=== PATIENT | female | born 1955 | race Caucasian/White ===

== ENCOUNTER 2017-12-10 14:15 | Outpatient (CLI) | payer BC | END 2017-12-10 14:16 | disposition home or self-care (01) | LOC: BICMAMMO 14:15 | PROVIDERS: ATTEND Family Medicine | DX: Z12.31 Encounter for screening mammogram for malignant neoplasm of breast (principal); Z85.89 Personal history of malignant neoplasm of other organs and systems | CPT/HCPCS: 77063; 77067 ==

== ENCOUNTER 2018-09-03 13:16 | Outpatient (CLI) | payer BC ==
--- NOTE | 2018-09-03 15:14 | ULT ---
THYROID ULTRASOUND: 09/03/2018 HISTORY: Re-evaluate thyroid nodules. COMPARISON: 11/07/2016 TECHNIQUE: Multiplanar bojorquez-scale sonographic imaging of the thyroid gland obtained. FINDINGS: The thyroid isthmus measures 2 mm in AP dimension. The right lobe measures 3.7 x 1.2 x 1.3 cm. Ther e is no nodule seen in the right lobe or in the thyroid isthmus. The left lobe measures 4.0 x 1.1 x 1.2 cm. Within the mid portion of the left lobe of the thyroid gl and, there is a solid, slightly hyperechoic nodule, measuring 8 x 5 x 5 mm, not significantly changed when compared to the 11/07/2016 exam. Just inferior to this is a second smaller, solid, isoechoic n odule, measuring 4 x 4 x 4 mm, unchanged as well. IMPRESSION: Stable subcentimeter thyroid nodules on the left, of doubtful clinical significance. No significant interval change. POS: SERGEY
== END 2018-09-03 13:17 | disposition home or self-care (01) ==
LOC: BICULT 13:16
PROVIDERS: ATTEND Otolaryngology Plastic Surgery within the Head & Neck
DX: E04.2 Nontoxic multinodular goiter (principal)
CPT/HCPCS: 76536

== ENCOUNTER 2018-12-14 18:29 | Observation (INO) | payer BC ==
[2018-12-14 19:35] LABS: #Basophils 0.1 thou/uL (0.0-0.2); #Lymphocytes 0.8 thou/uL (1.20-3.40); #Monocytes 0.7 thou/uL (0.11-0.59); #Neutrophils 16.2 thou/uL (1.40-6.50); %Basophils 0.8 % (0.0-1.0); %Eosinophils 0.1 % (0.0-10.0); %Lymphocytes 4.6 % (21.0-51.0); %Monocytes 3.8 % (0.0-10.0); %Neutrophils 90.8 % (42.0-75.0); Mean Corpuscular Hemoglobin 27.9 pg (27.0-31.0); Mean Corpuscular Volume 84.5 fL (78.0-98.0); Mean Platelet Volume 11.3 fL (7.4-10.4); Platelet Count 152 thou/uL (130-400); RBC Distribution Width 12.1 % (11.5-14.5); White Blood Cell (WBC) Count 17.9 thou/uL (4.8-10.8)
[2018-12-14 19:51] LABS: ALT (SGPT) 21 U/L (8-55); AST (SGOT) 22 U/L (5-34); Albumin 4.4 g/dL (3.4-4.8); Alkaline Phosphatase 74 U/L (40-150); Anion Gap 13 mmol/L (10-20); BUN (Urea Nitrogen) 21 mg/dL (9.8-20.1); Bilirubin, Total 0.6 mg/dL (0.2-1.2); Calc. Creatinine Clearance 0 mL/min (70-130); Calcium 9.7 mg/dL (7.8-10.44); Carbon Dioxide 25 mmol/L (23-31); Chloride 104 mmol/L (98-107); Estimated GFR-MDRD 73; Globulin 2.7 g/dL (2.4-3.5); Glucose 139 mg/dL (80-115); Lipase 23 U/L (8-78); Potassium 4.1 mmol/L (3.5-5.1); Protein, Total 7.1 g/dL (6.0-8.3); Sodium 138 mmol/L (136-145)
--- NOTE | 2018-12-14 20:10 | CT ---
CT Abdomen Pelvis W Con: 12/14/2018 7:08 PM CLINICAL INFORMATION: Abdominal cramping and bloody diarrhea COMPARISON: None. TECHNIQUE: Multiple contiguous axial images were obtained and a CT of the abdomen and pelvis with IV contrast. C oronal reformats were performed. FINDINGS: Lower Chest: within normal limits. Abdomen: Liver: within normal limits. Bile Ducts: Normal caliber. Gallbladder: Surgically absent Pancreas: within normal limits. Spleen: within normal limits. Adrenals: within normal limits. Kidneys: Subcentimeter hypodensities in the right kidney are too small to definitely characterize but likely represent cysts. Pelvis: Reproductive Organs: No pelvic masses. Ureters: within normal limits. Bladder: within normal limits. Peritoneum: No ascites or free air, no fluid collection. Bowel: Normal caliber. Mesentery and Retroperitoneum: No enlarged mesenteric or retroperitoneal lymph nodes. Vessels: Atherosclerotic calcifications. Abdominal Wall: within normal limits. Bones: Within normal limits IMPRESSION: 1. No evidence of acute intraabdominal\pelvic abnormality. 2. Right renal cysts
[2018-12-14] MEDS ORDERED: Ondansetron PF 4 MG/2 ML Vial ONE (21:31)
[2018-12-14] MEDS ORDERED: Acetaminophen 325 MG TAB PO PRN (22:01)
[2018-12-14] MEDS ORDERED: Ondansetron PF 4 MG/2 ML Vial IVP PRN (22:01)
[2018-12-14] MEDS ORDERED: Ondansetron ODT 4 MG TAB SL PRN (22:01)
[2018-12-14 22:17] VITALS: BMI 23.7
[2018-12-14] MEDS: Sodium Chloride 0.9% 1,000 ML IV SCH (23:38)
[2018-12-15] MEDS ORDERED: PROVENTIL INHALER 6.7 G (200 INHALATIONS) INH PRN (01:29)
[2018-12-15] MEDS: Sodium Chloride 0.9% 1,000 ML IV SCH (02:14)
[2018-12-15] MEDS: Ondansetron PF 4 MG/2 ML Vial IVP PRN ×3 (04:16→19:57)
[2018-12-15 05:18] LABS: #Lymphocytes 1.2 thou/uL (1.20-3.40); #Monocytes 1.3 thou/uL (0.11-0.59); #Neutrophils 15.6 thou/uL (1.40-6.50); %Eosinophils 0.1 % (0.0-10.0); %Lymphocytes 6.8 % (21.0-51.0); %Neutrophils 86.1 % (42.0-75.0); Hemoglobin 13.5 g/dL (12.0-16.0); Mean Corpuscular HGB CONC 32.8 g/dL (32.0-36.0); Mean Corpuscular Hemoglobin 28.5 pg (27.0-31.0); Platelet Count 139 thou/uL (130-400); RBC Distribution Width 11.7 % (11.5-14.5); Red Blood Cell (RBC) Count 4.71 mill/uL (4.20-5.40); White Blood Cell (WBC) Count 18.1 thou/uL (4.8-10.8)
[2018-12-15] MEDS: Levothyroxine Sodium 25 MCG TAB PO SCH (05:18)
[2018-12-15 05:41] LABS: Anion Gap 12 mmol/L (10-20); BUN (Urea Nitrogen) 12 mg/dL (9.8-20.1); Calc. Creatinine Clearance 82 mL/min (70-130); Carbon Dioxide 22 mmol/L (23-31); Chloride 107 mmol/L (98-107); Estimated GFR-MDRD 86; Glucose 114 mg/dL (80-115); Potassium 3.8 mmol/L (3.5-5.1); Sodium 137 mmol/L (136-145)
--- NOTE | 2018-12-15 05:43 | HP ---
CHIEF COMPLAINT: Bloody diarrhea. HISTORY OF PRESENT ILLNESS: The patient is a 63-year-old female who states that she was in her usual state of good health, went outside, worked in her yard during the morning and she felt like she was getting a bit overheated and got suddenly fairly tired and a bit lightheaded and dizzy, so she went inside, took a nap, but was awakened by some abdominal cramps and profuse diaphoresis followed by diarrhea. She subsequently had several bouts of diarrhea and then noted some blood in her stool. She could not be certain that it had been present on the previous episodes and she just did not notice it. It was red in color and she noted some blood with wiping. She subsequently presented to the emergency department and when she arrived here, she had an episode of a significant amount of bright red blood with some congealed and clotted blood. Since that time, she has continued to have some minor cramping, but the bowel movements have decreased and the volume has dropped off substantially and there is only very small amounts of blood and clot that she is passing now. She also had some nausea and vomiting that started on her arrival to the emergency department, vomited 2 to 3 times. No blood. She denies any fever, but has had some chills. Also of note, the patient reports [place] "all sorts of things" including the seafood. She also says that on the morning of admission, drank coffee that had been sitting out for several days. She mistook it for the coffee she had started that morning. She reports it did have creamer in it. REVIEW OF SYSTEMS: As noted, the patient denied any fevers or chills. She denies any other abdominal pain other than the cramping pain. All other systems reviewed. All pertinent positives and negatives are noted in the history of present illness. PAST MEDICAL HISTORY: Notable for prior upper and lower endoscopies, only revealing some stomach polyp. She was told it was likely due to her utilization of Nexium. These were performed by Dr. Ball. She also has hypertension. She has history of thyroid nodules. 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 She sounds like she had some congenital strabismus corrected as well. PAST SURGICAL HISTORY: Cholecystectomy, appendectomy, prior liver biopsy remotely, history of exploratory laparoscopy for endometriosis, and strabismus correction. FAMILY HISTORY: Father had coronary artery bypass, lymphoma, colon polyps, and prostate enlargement. He also had a pacemaker. Her mother had thyroid disease and a pacemaker. SOCIAL HISTORY: She is a nonsmoker. Minimal alcohol drinker. Denies drugs. She has been for 37 years. She is full code and her , Lan, would be her surrogate decision maker should that become necessary. ALLERGIES: AMOXICILLIN WHICH CAUSES GASTRITIS, AZITHROMYCIN CAUSING HIVES, AND CODEINE WHICH CAUSES HER SOME ABNORMAL SHAKINESS OR PARESTHESIAS. CURRENT MEDICATIONS: 1. Aspirin 325 p.r.n. 2. Fexofenadine 180 daily. 3. Losartan 25 q.a.m. 4. Levothyroxine 25 mcg daily. 5. Albuterol p.r.n. PHYSICAL EXAMINATION: VITAL SIGNS: Temperature 98.2, pulse 78, respirations 18, O2 saturation 97% on room air, BP 119/80. GENERAL APPEARANCE: Age-appropriate female. She is in no distress. She is very pleasant and cooperative. HEENT: PERRL. No OP lesions. NECK: Supple and symmetric. HEART: Regular rate and rhythm without murmurs, gallops, or rubs. LUNGS: Clear to auscultation bilaterally with good chest wall expansion and air exchange. ABDOMEN: Soft, nontender, and nondistended with normal bowel sounds. No masses. No organomegaly. EXTREMITIES: No cyanosis, clubbing, or edema. LABORATORY DATA: White count 17.9, hemoglobin 15.0, platelets 152. Chemistries notable for BUN of 21, glucose 139. All other chemistries are normal. LFTs normal. Lipase 23. Stool for occult blood is positive. CT abdomen and pelvis is negative for any acute processes. IMPRESSION AND PLAN: Hematochezia in light of the additional vomiting. The fact that [place] had [place] and that she drank some coffee with creamer that was at least 4 to 5 days old certainly raises the concern for the possibility of a viral or bacterial food-borne illness that already seems to be improving. The patient does admit to having some history of external hemorrhoids, but is unaware of any internal hemorrhoids, so it is possible she could have had some rupture of an internal hemorrhoid as well. We will go ahead and cover with antibiotics given the elevated white blood cell count. We will consult GI, although I doubt endoscopy would be indicated as her symptoms seem to be improving and she has already had fairly recent endoscopies to rule out malignancies. PLANS: 1. We will recheck labs in the morning. 2. Hypertension. Continue with her usual home medications. 3. Hypothyroidism. 4. Thyroid nodules. Continue with her suppressive therapy with levothyroxine. Job ID: [id number]
[2018-12-15] MEDS: Losartan 25 MG TAB PO SCH (07:52)
--- NOTE | 2018-12-15 13:31 | PRG ---
DATE OF SERVICE: 12/15/2018 SUBJECTIVE: The patient is seen and examined at the bedside. She is still having some hematochezia. She feels a little bit weak and tired. She denies any chest pain. OBJECTIVE: VITAL SIGNS: Blood pressure is 116/76, temperature is 98.1, pulse is 75, respirations 18, O2 saturation is 100 on room air. HEENT: Head is atraumatic and normocephalic. Eyes are PERRLA. Sclerae are nonicteric. Oral mucosa is moist. NECK: Supple. LUNGS: Clear. HEART: S1 and S2 normal. No S3. No S4. ABDOMEN: Soft, nontender. Bowel sounds are present. No organomegaly. EXTREMITIES: No clubbing, cyanosis, or edema. NEUROLOGICAL: Examination she is alert and oriented x4. There is no any sensory or motor deficits present. Cranial nerves are intact. LABORATORY DATA: Labs showed white count of 18.1, hemoglobin of 13.5, hematocrit 41.0, platelet count is 139,000. Sodium 137, potassium 3.8, chloride 107, CO2 of 22, BUN 12, creatinine 0.69, glucose 114, calcium 9.0. IMPRESSION: Bloody diarrhea, which is suspicious for infectious etiology. The patient was started on levofloxacin and elevator conductor is consulted. We are going to follow her closely. Continue her levothyroxine and losartan. Stool culture pending and she can have some clear liquids. I do not think that elevator conductor will scope her today. Job ID: [id number]
[2018-12-15] MEDS ORDERED: GoLYTELY 4,000 ml Bottle PO SCH (19:30)
--- NOTE | 2018-12-16 05:05 | CON ---
DATE OF CONSULTATION: 12/15/2018 REASON FOR CONSULTATION: Hematochezia. CONSULTING PHYSICIAN: Shane Bauman MD HISTORY OF PRESENT ILLNESS: The patient is a 63-year-old female with past medical history of hypertension, GERD, thyroid nodules, and endometriosis, presenting with complaints of hematochezia. She states that she was in her usual state of health until 1 day ago when she experienced increased lightheadedness and dizziness while working in her yard. She ultimately went to take a nap and upon awakening, experienced increased lower abdominal cramping as well as diaphoresis and the onset of bloody diarrhea. In terms of the timing of her hematochezia, she has been having 2 to 3 episodes of liquid bowel movements prior to the baptist of hematochezia with her hematochezia characterized primarily as bright red blood per rectum that was present on both the toilet paper and in the toilet. She characterized the blood in the toilet as blood tinged water surrounding her stool; however, she did have a larger bloody bowel movement with blood clots x1 shortly prior to her admission to [facility] ER that was accompanied with increased malaise and diaphoresis, and ultimately prompted her to seek healthcare assistance. While she has been an inpatient here at [facility], she has been having multiple small volume bloody bowel movements all day that have been usually associated with passage of small volumes of stool. This was associated with increased nausea without any vomiting, increased headache, subjective fevers and chills, but denies any melena or hematemesis at this time. Of note, the patient underwent both EGD and colonoscopy on October 21, 2016 with EGD showing the presence of multiple fundic gland polyps that were not biopsied due to previous biopsies confirming the diagnosis. However, the colonoscopy did show the presence of 6 polyps removed from the colon that were read as combination of tubular adenomas and hyperplastic polyps. There was no mention of diverticulosis or hemorrhoids during that colonoscopy. REVIEW OF SYSTEMS: A 10-category review of systems was obtained with all responses negative except for the pertinent positives as listed in HPI. PAST MEDICAL HISTORY: As per HPI. PAST SURGICAL HISTORY: Cholecystectomy, appendectomy, exploratory laparoscopy for endometriosis, strabismus correction, and possible liver biopsy. FAMILY HISTORY: Father with a history of colonic polyps that were diagnosed after the age of 60, but denies any additional family members with polyps or colon cancer. SOCIAL HISTORY: Denies any tobacco or illicit drug use. She does drink occasionally with 1 drink approximately every 1 to 2 weeks. OUTPATIENT MEDICATIONS: Reviewed. ALLERGIES: AMOXICILLIN, AZITHROMYCIN AND CODEINE. PHYSICAL EXAMINATION: VITAL SIGNS: Temperature 98.4, pulse 73, blood pressure 129/82, respiratory rate 20, saturating 100% on room air. GENERAL: The patient was lying in bed, in no acute distress. Alert and oriented x4. HEENT: Normocephalic, atraumatic. NECK: Supple. No JVD or scleral icterus noted. CARDIOVASCULAR: Regular rate and rhythm with no discernible murmurs, gallops, or rubs RESPIRATORY: Clear to auscultation bilaterally with no discernible wheezes or rales. ABDOMEN: Normoactive bowel sounds. Soft, nontender, nondistended. EXTREMITIES: No cyanosis, clubbing, or edema. LABORATORY DATA: CBC with a white blood cell count of 18.1, hemoglobin 13.5, hematocrit 41, platelets 139. Chemistry with a sodium of 137, potassium 3.8, chloride 107, CO2 22, BUN 12, creatinine 0.69 with a glucose of 114, AST 22, ALT 21, alkaline phosphatase 74, and total bilirubin 0.6. IMAGING DATA: CT of the abdomen and pelvis was obtained on December 14, 2018, which showed no evidence of acute intraabdominal or pelvic abnormalities, but did show the presence of right renal cyst that were too small to definitely characterize. ASSESSMENT AND PLAN: The patient is a 63-year-old female with past medical history of hypertension, GERD, thyroid nodules, and endometriosis, presenting with complaints of hematochezia. Hematochezia. The patient is presenting with fairly acute onset of hematochezia characterized as bright red blood per rectum with blood present both on the toilet paper and in the toilet with blood-tinged water primarily. This was immediately preceded by multiple episodes of diarrhea, which then culminated in her hematochezia. She did have one episode of large amount of bright red blood with blood clots, but this has not since recurred, but instead she has been having multiple smaller volume bowel movements all day that were slightly bloody in nature. Colonoscopy was performed on October 21, 2016, it did not have any evidence of features that might lend itself toward the hematochezia that she is currently experiencing, nor did she endorse the use of any anticoagulation medications that would put her at higher risk. Upon review of her current H and H, it is currently normal, although somewhat decreased when compared to admission, although she has received IV fluids during the course of this hospitalization, which could contribute to hemodilution. At this time, the differential could include colitis (ischemia, infectious or other) arteriovenous malformation, Dieulafoy lesion, diverticular bleeding (much less likely given the character of her bleeding), internal hemorrhoidal bleeding, segmental colitis associated with diverticulosis and/or GI malignancy (much less likely given negative colonoscopy 2 years ago). RECOMMENDATIONS: 1. We would continue to trend H and H and transfuse as necessary to maintain an H and H of 7/21. 2. We would continue to monitor clinically for signs of active GI bleeding. 3. We will place the patient on a clear liquid diet today and place her n.p.o. at midnight in anticipation for colonoscopy. 4. We will plan for colonoscopy tomorrow for intraluminal evaluation of possible GI bleeding source. Further recommendations to follow colonoscopy. 5. I will order stool studies to be evaluated for this patient that could potentially contribute to her bloody diarrhea. We will continue to follow. Please call with any questions. Job ID: [id number]
[2018-12-16 05:21] LABS: #Lymphocytes 1.4 thou/uL (1.20-3.40); #Monocytes 0.9 thou/uL (0.11-0.59); #Neutrophils 10.1 thou/uL (1.40-6.50); %Basophils 0.1 % (0.0-1.0); %Eosinophils 0.2 % (0.0-10.0); %Lymphocytes 11.5 % (21.0-51.0); %Neutrophils 81.3 % (42.0-75.0); Hemoglobin 13.6 g/dL (12.0-16.0); Mean Corpuscular HGB CONC 33.2 g/dL (32.0-36.0); Mean Corpuscular Hemoglobin 29.2 pg (27.0-31.0); Mean Corpuscular Volume 87.8 fL (78.0-98.0); Mean Platelet Volume 9.7 fL (7.4-10.4); Platelet Count 110 thou/uL (130-400); Platelet Morphology Comment Appears Adequate; RBC Distribution Width 11.8 % (11.5-14.5); Red Blood Cell (RBC) Count 4.66 mill/uL (4.20-5.40); White Blood Cell (WBC) Count 12.4 thou/uL (4.8-10.8)
[2018-12-16 05:25] LABS: Anion Gap 13 mmol/L (10-20); BUN (Urea Nitrogen) 8 mg/dL (9.8-20.1); Calc. Creatinine Clearance 69 mL/min (70-130); Calcium 9.4 mg/dL (7.8-10.44); Carbon Dioxide 28 mmol/L (23-31); Chloride 106 mmol/L (98-107); Estimated GFR-MDRD 71; Glucose 88 mg/dL (80-115); Potassium 4.1 mmol/L (3.5-5.1); Sodium 143 mmol/L (136-145)
[2018-12-16] MEDS: Levothyroxine Sodium 25 MCG TAB PO SCH (06:13)
[2018-12-16] MEDS: Losartan 25 MG TAB PO SCH (09:04)
[2018-12-16 09:43] LABS: Bilirubin Negative (Negative); Blood, Urine Trace (Negative); Clarity Clear (Clear); Glucose, Urine (Dipstick) Normal (Negative); Leukocyte Negative Leu/uL (Negative); Nitrite Negative (Negative); Protein, Urine (Dipstick) Negative (Neg-Trace); Urobilinogen Normal mg/dL (Less than 2)
--- NOTE | 2018-12-16 15:28 | PRG ---
DATE OF SERVICE: 12/16/2018 SUBJECTIVE: The patient is seen and examined at bedside. She is getting ready for her colonoscopy this morning by Dr. Car. She finished her prep. She has some abdominal cramps on and off. OBJECTIVE: VITAL SIGNS: Blood pressure is 108/62, pulse is 80, temperature is 98.1, respiratory rate is 20, and O2 saturation is 95% on room air. HEENT: Head, atraumatic and normocephalic. Eyes are PERRLA. Sclerae are nonicteric. Oral mucosa is somewhat dry. NECK: Supple. LUNGS: Clear. HEART: S1 and S2 normal. No S3. No S4. ABDOMEN: Soft. Mildly tender on deeper palpation. No guarding. No masses. EXTREMITIES: No clubbing, cyanosis, or edema. NEUROLOGIC: Intact. LABORATORY DATA: Labs showed white count of 12.4, hemoglobin 13.6, hematocrit 40.9, platelet count is 110,000. Chemistry; normal electrolytes, BUN of 8, creatinine 0.81. The rest of chemistry within normal limits. Microbiology, Campylobacter assay came back negative. Also, Shiga toxin 1 and 2 negative. C difficile antigen and toxin came back negative. Stool occult blood final testing came back positive and stool culture preliminary showed few normal enteric gertrudis present. No E coli O157 isolated at 24 hours. IMPRESSION: Lower GI bleeding suspicious to me for infectious etiology. She is supposed to continue her levofloxacin and she will be scoped by Dr. Car today. We are waiting for that. Job ID: [id number]
[2018-12-16] MEDS ORDERED: PROPOFOL 200 MG/20 ML VIAL ONE (16:20)
[2018-12-16] MEDS ORDERED: Lidocaine 1% PF 5 ML VIAL ONE (16:20)
[2018-12-16] MEDS ORDERED: Dextrose 50% Abboject 50 ML SYRINGE ONE (16:42)
[2018-12-16] MEDS ORDERED: Promethazine HCl 25 MG/ML VIAL IM PRN (18:20)
[2018-12-16] MEDS ORDERED: Morphine Sulfate 2 MG/ML SYRINGE SLOW IVP PRN (18:20)
[2018-12-16] MEDS ORDERED: Ondansetron HCl/PF 4 MG/2 ML Vial IVP PRN (18:20)
[2018-12-16] MEDS ORDERED: Promethazine HCl 25 MG/ML VIAL SLOW IVP PRN (18:20)
--- NOTE | 2018-12-17 03:17 | OP ---
DATE OF PROCEDURE: 12/16/2018 PROCEDURE: Colonoscopy with biopsies. INDICATION FOR PROCEDURE: Hematochezia. DESCRIPTION OF PROCEDURE: After the risks and benefits of the procedure were explained to the patient including risks of bleeding, infection, perforation, reactions to anesthesia, aspiration and/or pain, informed consent was obtained. The patient was then taken to the endoscopy suite, where deep sedation was administered via propofol and the anesthesia support. Once adequate sedation was achieved, a digital rectal examination was performed followed by introduction of the standard colonoscope, which was then advanced without difficulty to the terminal ileum. The mucosa was then carefully examined upon withdrawal with the findings listed below. The quality of the prep was adequate for the evaluation of large mucosal lesions as well as active GI bleeding, but inadequate for the evaluation of small mucosal lesions less than 5 mm in size. The patient tolerated the procedure well with no immediate perioperative complications. Upon completion of the procedure, all equipment was removed from the patient and she was transferred to PACU in satisfactory condition. FINDINGS: Digital rectal exam, normal. Colon findings: Normal-appearing mucosa was seen within the terminal ileum, as well as at the ileocecal valve and appendiceal orifice. Normal-appearing mucosa was then seen in the cecum, ascending colon, transverse colon and proximal descending colon. However at approximately 40 cm past the anal verge, increased mucosal erythema and nodularity was noticed along one wall of the colon occupying approximately 25% to 40% of the colonic wall with the remaining colon normal in appearance. This extended from 25 cm to 40 cm past the anal verge. Multiple biopsies were taken from this region with minimal amount of bleeding taken from these increased erythematous sites. There was no evidence of overt ulceration associated with this region nor was there any evidence of active/recent bleeding. Normal-appearing mucosa was then seen from the anal verge to 25 cm with normal findings on rectal retroflexion. IMPRESSION: 1. An area of segmental erythematous mucosa with nodularity consistent with ischemic colitis in the left colon. 2. Inadequate prep for the evaluation of fine mucosal lesions. RECOMMENDATIONS: 1. Would continue to trend the H and H and transfuse as necessary to maintain an H and H of 7/21. 2. Would continue to monitor clinically for signs of active GI bleeding. 3. Would attempt to maintain normotensive pressures as episodes of hypotension could potentially contribute to ischemic colitis. 4. We will follow up on the biopsy results with further care guided by that, but the patient does not need to be inpatient in order to follow up on these results. 5. Would hold anticoagulation at least for the time being given biopsies done today. Given the high likelihood of ischemic colitis, we will sign off at this time. Discussion with the radiologist about the superior mesenteric artery and inferior mesenteric artery showed patent vessels down to the colon wall making vascular stenosis unlikely. Would have the patient follow up in the GI clinic in 3 to 4 weeks. Please call with any questions. Job ID: [id number]
[2018-12-17] MEDS: Levothyroxine Sodium 25 MCG TAB PO SCH (06:15)
[2018-12-17 07:05] LABS: Anion Gap 13 mmol/L (10-20); BUN (Urea Nitrogen) 15 mg/dL (9.8-20.1); Calc. Creatinine Clearance 73 mL/min (70-130); Calcium 8.8 mg/dL (7.8-10.44); Carbon Dioxide 26 mmol/L (23-31); Chloride 106 mmol/L (98-107); Estimated GFR-MDRD 75; Glucose 81 mg/dL (80-115); Sodium 141 mmol/L (136-145)
[2018-12-17 07:32] VITALS: BP 109/68; TEMP 98
[2018-12-17] MEDS: Losartan 25 MG TAB PO SCH (08:43)
--- NOTE | 2018-12-17 16:06 | DIS ---
DATE OF ADMISSION: 12/14/2018 DATE OF DISCHARGE: 12/17/2018 FINAL DIAGNOSES: 1. Ischemic colitis and associated with lower GI bleeding. 2. Hypertension per history. 3. Episodes of hypoglycemia. CONSULTANTS: Dr. Car, Gastrointestinal Service. PROCEDURE PERFORMED: Colonoscopy with biopsies. FINDINGS: 1. An area of segmental erythematous mucosa with nodularity consistent with ischemic colitis in the left colon. 2. Inadequate prep for the evaluation of fine mucosal lesions. HOSPITAL COURSE: The patient is a 63-year-old female, who was admitted to the hospital with bloody diarrhea. She had several bouts of diarrhea. She noticed some blood in her stool Emergency Room, where she had more bloody diarrhea and hematochezia. She denied any fever. She had some abdominal cramps. At the time of evaluation in the emergency room, her white count was up to 17.9, hemoglobin 15.0, platelet count was 152,000. BUN 21, glucose 139, normal LFTs. Lipase 23. Stool was positive for occult blood test. CT of the abdomen and pelvis was negative for any acute process. She got admitted to the hospital. She had some diagnostic workup done on her stool. Microbiology showed no Campylobacter, no shiga toxin, no C difficile antigen or toxins. Stool culture came back positive for moderate normal enteric gertrudis present, but no Salmonella Shigella or E coli 0157 were isolated. The patient was seen by Dr. Car for GI evaluation. He recommended colonoscopy which was done the next day and it showed an area of segmental erythematous mucosa with nodularity consistent with ischemic colitis in the left colon. The case was discussed with radiologist, who read the CT of the pelvis and abdomen and this was said that it was unlikely there was some kind of stenotic lesion in vascular bed in the abdomen causing this kind of ischemia, so it was felt that most likely her blood pressure gets low and she is hypotensive and this causes some ischemia in her gut. The patient's losartan was discontinued completely and she is doing well. She does not have more bleeding anymore. She is able to tolerate food. Her vitals; blood pressure is 109/68, pulse is 67, temperature is 98.0, respiratory rate 18, O2 saturation is 97% on room air. She is seen and examined before she is discharged. She is discharged home in good condition. Her last hemoglobin level is 14.0 and chemistry was within normal limits. ACTIVITIES: As tolerated. DIET: Regular diet. FOLLOWUP: Follow up with primary care physician in [address] Car in 2 weeks, and the patient was seen and examined before she her discharge and the discharge time is less than 30 minutes. Job ID: [id number]
== END 2018-12-17 16:07 | disposition home or self-care (01) ==
LOC: SCSER 18:29 → T4-A 21:47
PROVIDERS: ADMIT Internal Medicine; ATTEND Internal Medicine
PROC: 0DBN8ZX Excision of Sigmoid Colon, Via Natural or Artificial Opening Endoscopic, Diagnostic (ICD-10-PCS; principal; 2018-12-16)
DX: K92.1 Melena (principal); K55.9 Vascular disorder of intestine, unspecified; Q61.02 Congenital multiple renal cysts; I10 Essential (primary) hypertension; E03.9 Hypothyroidism, unspecified; K21.9 Gastro-esophageal reflux disease without esophagitis; Z80.0 Family history of malignant neoplasm of digestive organs; Z79.82 Long term (current) use of aspirin; Z79.899 Other long term (current) drug therapy; Z88.0 Allergy status to penicillin; Z88.1 Allergy status to other antibiotic agents; Z88.5 Allergy status to narcotic agent; Z98.890 Other specified postprocedural states
CPT/HCPCS: 36415; 74177; 80048; 80053; 81003; 82274; 83690; 85014; 85018; 85025; 87045; 87046; 87324; 87449; 87899; 88305; 96361; 96365; 96366; 96374; 96375; 96376; G0378; J1956; J2001; J2405; J2704

== ENCOUNTER 2018-12-23 12:57 | Outpatient (CLI) | payer BC ==
--- NOTE | 2018-12-23 15:29 | MMO ---
Bilateral MAMMO Bilat Screen [facility]. CLINICAL HISTORY: Patient is 63 years old and is seen for screening. The patient has no family history of breast cancer. The patient has a history of Skin cancer at age 49. VIEWS: The views performed were: bilateral craniocaudal with tomosynthesis and bilateral mediolateral oblique with tomosynthesis. FILMS COMPARED: The present examination has been compared to prior imaging studies performed at [facility] on 04/04/2009, 04/05/2010, 04/08/2011 and 12/10/2017. MAMMOGRAM FINDINGS: There are scattered fibroglandular densities. There is a stable nodule seen in the sub-areolar region of the right breast. There are no suspicious masses, suspicious calcifications, or new areas of architectural distortion. IMPRESSION: THERE IS NO MAMMOGRAPHIC EVIDENCE OF MALIGNANCY. A ROUTINE FOLLOW-UP MAMMOGRAM IN 1 YEAR IS RECOMMENDED. THE RESULTS OF THIS EXAM WERE SENT TO THE PATIENT. ACR BI-RADS Category 2 - Benign finding MAMMOGRAPHY NOTE: 1. A negative mammogram report should not delay a biopsy if a dominant of clinically suspicious mass is present. 2. Approximately 10% to 15% of breast cancers are not detected by mammography. 3. Adenosis and dense breasts may obscure an underlying neoplasm. Reported by: JUWAN CRUZ MD Electonically Signed: [id number]
== END 2018-12-23 12:58 | disposition home or self-care (01) ==
LOC: BICMAMMO 12:57
PROVIDERS: ATTEND Family Medicine
DX: Z12.31 Encounter for screening mammogram for malignant neoplasm of breast (principal); Z85.828 Personal history of other malignant neoplasm of skin
CPT/HCPCS: 77063; 77067

== ENCOUNTER 2019-03-02 11:07 | Outpatient (CLI) | payer BC ==
--- NOTE | 2019-03-02 11:28 | ULT ---
Thyroid ultrasound: 03/02/2019 COMPARISON: 09/03/2018 HISTORY: Thyroid nodule TECHNIQUE: Multiplanar grayscale sonographic imaging of the thyroid gland obtained. FINDINGS: Thyroid isthmus measures 1-2 mm in AP dimension. Left lobe measures 1.5 x 3.6 x 1.2 cm and right lobe measures 1.6 x 3.3 x 1.1 cm. There is no thyroid nodule within the isthmus or right lobe. Within the superior aspect of the left lobe of the thyroid gland there is a solid heterogeneous isoec hoic nodule measuring approximately 9 x 5 x 6 mm, not significantly changed when compared to the prior exam. There is an additional partially rim calcified nodule within the midportion of the left l obe measuring 3 x 3 x 4 mm, unchanged as well. IMPRESSION: 2 stable left thyroid nodules as detailed above. Sonographic characteristics of these nod ules are consistent with TI-RADS category 3-mildly suspicious. No further follow-up is required as none of the nodules are greater than or equal to 1.5 cm.
== END 2019-03-02 11:08 | disposition home or self-care (01) ==
LOC: SCSULT 11:07
PROVIDERS: ATTEND Family Medicine
DX: E04.2 Nontoxic multinodular goiter (principal)
CPT/HCPCS: 76536

== ENCOUNTER 2019-12-27 09:02 | Outpatient (CLI) | payer BC ==
--- NOTE | 2019-12-27 09:43 | BD ---
DEXA bone density scan: 12/27/2019 COMPARISON: 11/07/2016 History: Postmenopausal female undergoing screening for osteoporosis FINDINGS: Bone mineral density within the lumbar spine (grams per centimeter squared) is as follows: L1 0.887 L2 0.984 L3 0.927 L4 0.966 Total lumbar spine 0.942 T-scores within the lumbar spine are as follows: L1 -0.9 L2 -0.4 L3 -1.4 L4 -0.9 Total -1.0 Bone mineral density within the proximal femur (grams per centimeter squared) is as follows: Femoral neck 0.631 Total proximal femur 0.794 T-scores within the proximal femur are as follows: Femoral neck -2.0 Total proximal femur -1.2 When compared to the prior examination the total proximal femur bone marrow mineral density has decre ased by 6.7% in bone mineral density within the lumbar spine has decreased by 6%. The FRAX-WHO fracture risk assessment tool reports a 10 year fracture risk in an untreated patient at 10% for major osteoporotic fracture and 1.5% for hip fracture. IMPRESSION: Osteopenia within the proximal femur correlating with a moderately increased risk for fra cture.
--- NOTE | 2019-12-27 10:50 | MMO ---
Bilateral MAMMO Bilat Screen [facility]. CLINICAL HISTORY: Patient is 64 years old and is seen for screening. The patient has no family history of breast cancer. The patient has a history of Skin cancer at age 49. VIEWS: The views performed were: bilateral craniocaudal with tomosynthesis and bilateral mediolateral oblique with tomosynthesis. FILMS COMPARED: The present examination has been compared to prior imaging studies performed at [facility] on 04/05/2010, 04/08/2011, 12/10/2017 and 12/23/2018. This study has been interpreted with the assistance of computer-aided detection. MAMMOGRAM FINDINGS: There are scattered fibroglandular densities. The right subaerolar breast nodule is stable. There are no suspicious masses, suspicious calcifications, or new areas of architectural distortion. IMPRESSION: THERE IS NO MAMMOGRAPHIC EVIDENCE OF MALIGNANCY. A ROUTINE FOLLOW-UP MAMMOGRAM IN 1 YEAR IS RECOMMENDED. THE RESULTS OF THIS EXAM WERE SENT TO THE PATIENT. ACR BI-RADS Category 2 - Benign finding MAMMOGRAPHY NOTE: 1. A negative mammogram report should not delay a biopsy if a dominant of clinically suspicious mass is present. 2. Approximately 10% to 15% of breast cancers are not detected by mammography. 3. Adenosis and dense breasts may obscure an underlying neoplasm. Reported by: PANKAJ RENEE MD Electonically Signed: [id number]
== END 2019-12-27 09:03 | disposition home or self-care (01) ==
LOC: BICMAMMO 09:02
PROVIDERS: ATTEND Family Medicine
DX: Z12.31 Encounter for screening mammogram for malignant neoplasm of breast (principal); M85.859 Other specified disorders of bone density and structure, unspecified thigh; Z85.828 Personal history of other malignant neoplasm of skin
CPT/HCPCS: 77063; 77067; 77080

== ENCOUNTER 2021-05-18 17:57 | Emergency (ER) | payer BC | END 2021-05-18 19:37 | disposition home or self-care (01) | LOC: ERS 17:57 | DX: I10 Essential (primary) hypertension (principal); T46.5X5A Adverse effect of other antihypertensive drugs, initial encounter; E03.9 Hypothyroidism, unspecified | CPT/HCPCS: 99283 ==

== ENCOUNTER 2021-11-01 11:20 | Outpatient (CLI) | payer BC ==
[2021-11-01 13:05] LABS: #Monocytes 0.8 10x3/uL (0.0-1.1); #Neutrophils 5.6 10x3/uL (1.5-8.4); %Basophils 0.1 % (0.0-2.0); %Eosinophils 0.1 % (0.0-6.0); %Lymphocytes 18.1 % (18.0-47.0); %Monocytes 9.9 % (0.0-10.0); %Neutrophils 71.4 % (40.0-75.0); Mean Corpuscular HGB CONC 32.8 g/dL (32.0-36.0); Mean Corpuscular Hemoglobin 27.9 pg (27.0-33.0); Mean Corpuscular Volume 85.1 fl (81.6-98.3); Platelet Count 178 10x3/uL (150-450); RBC Distribution Width 12.6 % (11.5-14.5); Red Blood Cell (RBC) Count 5.37 10x6/uL (3.90-5.03); White Blood Cell (WBC) Count 7.9 10x3/uL (3.5-10.5)
[2021-11-01 21:27] LABS: SARS-CoV-2 PCR by NAA Not Detected (NotDetected)
== END 2021-11-01 11:21 | disposition home or self-care (01) ==
LOC: LABBT 11:20
PROVIDERS: ATTEND Specialist
DX: Z01.818 Encounter for other preprocedural examination (principal); N64.52 Nipple discharge; Z20.822 Contact with and (suspected) exposure to COVID-19
CPT/HCPCS: 85025; 93005; 93010; U0003; U0005

== ENCOUNTER 2021-11-06 06:12 | Day surgery (SDC) | payer BC ==
[2021-11-05 14:30] VITALS: BMI 22.6
[2021-11-06] MEDS ORDERED: Acetaminophen 500 MG TAB ONE (06:36)
[2021-11-06] MEDS ORDERED: Ketorolac Tromethamine 30 MG/ML VIAL ONE (06:36)
[2021-11-06] MEDS ORDERED: Bupivacaine 0.25% 10 ML VIAL ONE (07:02)
[2021-11-06] MEDS ORDERED: Lidocaine 1% w/Epinephrine 1:100K 20 ML VIAL ONE (07:02)
[2021-11-06] MEDS ORDERED: Promethazine HCl 25 MG/ML VIAL ONE (07:05)
[2021-11-06] MEDS ORDERED: fentaNYL Citrate/PF 100 MCG/2 ML SYRINGE ONE (07:05)
[2021-11-06] MEDS ORDERED: CEFAZOLIN 2 GM VIAL ONE (07:08)
[2021-11-06] MEDS ORDERED: Sodium Chloride 0.9% 100 ML ONE (07:08)
[2021-11-06] MEDS ORDERED: PROPOFOL 200 MG/20 ML VIAL ONE (07:51)
[2021-11-06] MEDS ORDERED: Dexamethasone 20 MG/5 ML VIAL ONE (07:51)
[2021-11-06] MEDS ORDERED: Ondansetron PF 4 MG/2 ML Vial ONE (07:51)
[2021-11-06] MEDS ORDERED: ePHEDrine 50 MG/ML VIAL ONE (07:51)
[2021-11-06] MEDS ORDERED: PHENYLEPHRINE-NS 100 MCG/ML 10 ML SYRINGE ONE (07:51)
[2021-11-06] MEDS ORDERED: Lidocaine 1% PF 5 ML VIAL ONE (07:51)
[2021-11-06] MEDS ORDERED: Methylene Blue 50 MG/10 ML AMPUL ONE (08:07)
== END 2021-11-06 10:30 | disposition home or self-care (01) ==
LOC: SDC 06:12
PROVIDERS: ATTEND Specialist
PROC: 0HBT0ZZ Excision of Right Breast, Open Approach (ICD-10-PCS; principal; 2021-11-06)
DX: N60.81 Other benign mammary dysplasias of right breast (principal); N60.11 Diffuse cystic mastopathy of right breast; N64.52 Nipple discharge; E78.5 Hyperlipidemia, unspecified; I10 Essential (primary) hypertension; J45.909 Unspecified asthma, uncomplicated; E55.9 Vitamin D deficiency, unspecified; G47.30 Sleep apnea, unspecified; K21.9 Gastro-esophageal reflux disease without esophagitis; Z79.890 Hormone replacement therapy; Z79.899 Other long term (current) drug therapy; Z88.0 Allergy status to penicillin; Z88.1 Allergy status to other antibiotic agents; Z88.5 Allergy status to narcotic agent
CPT/HCPCS: 88305; 88307; J1100; J1885; J2405; J2550; J2704; J3490; Q9968; S0020

== ENCOUNTER 2021-11-14 12:45 | Outpatient (CLI) | payer BC | END 2021-11-14 12:46 | disposition home or self-care (01) | LOC: BICMAMMO 12:45 | PROVIDERS: ATTEND Family Medicine | DX: M85.89 Other specified disorders of bone density and structure, multiple sites (principal) | CPT/HCPCS: 77080 ==

== ENCOUNTER 2021-11-16 12:57 | Outpatient (CLI) | payer BC | END 2021-11-16 12:58 | disposition home or self-care (01) | LOC: LABBT 12:57 | PROVIDERS: ATTEND Internal Medicine | DX: K55.9 Vascular disorder of intestine, unspecified (principal); R19.4 Change in bowel habit; Z80.0 Family history of malignant neoplasm of digestive organs; Z86.010 Personal history of colon polyps; Z20.822 Contact with and (suspected) exposure to COVID-19 | CPT/HCPCS: U0003; U0005 ==

== ENCOUNTER 2021-11-21 11:04 | Day surgery (SDC) | payer BC ==
[2021-11-20 11:10] VITALS: BMI 23.0
[2021-11-21] MEDS ORDERED: Acetaminophen 500 MG TAB ONE (11:49)
[2021-11-21] MEDS ORDERED: Ketorolac Tromethamine 30 MG/ML VIAL ONE ×2 (11:49→13:13)
[2021-11-21 12:19] LABS: #Basophils 0.2 thou/uL (0.0-0.2); #Lymphocytes 1.5 thou/uL (1.20-3.40); #Monocytes 0.6 thou/uL (0.11-0.59); %Basophils 1.9 % (0.0-1.0); %Eosinophils 0.4 % (0.0-10.0); %Lymphocytes 15.7 % (21.0-51.0); %Monocytes 6.5 % (0.0-10.0); %Neutrophils 75.4 % (42.0-75.0); Hemoglobin 15.6 g/dL (12.0-16.0); Mean Corpuscular Hemoglobin 29.8 pg (27.0-31.0); Mean Corpuscular Volume 90.1 fL (78.0-98.0); Mean Platelet Volume 9.3 fL (7.4-10.4); Platelet Count 172 thou/uL (130-400); RBC Distribution Width 11.8 % (11.5-14.5); Red Blood Cell (RBC) Count 5.24 mill/uL (4.20-5.40); White Blood Cell (WBC) Count 9.3 thou/uL (4.8-10.8)
[2021-11-21] MEDS ORDERED: Promethazine HCl 25 MG/ML VIAL ONE (12:27)
[2021-11-21] MEDS ORDERED: fentaNYL Citrate/PF 100 MCG/2 ML SYRINGE ONE (12:27)
[2021-11-21 12:35] LABS: Anion Gap 13 mmol/L (10-20); BUN (Urea Nitrogen) 20 mg/dL (9.8-20.1); Calc. Creatinine Clearance 66 mL/min (70-130); Calcium 9.5 mg/dL (7.8-10.44); Carbon Dioxide 28 mmol/L (23-31); Chloride 105 mmol/L (98-107); Glucose 88 mg/dL (80-115); Potassium 4.6 mmol/L (3.5-5.1); Sodium 141 mmol/L (136-145)
[2021-11-21] MEDS ORDERED: Lidocaine 1% w/Epinephrine 1:100K 20 ML VIAL ONE (12:35)
[2021-11-21] MEDS ORDERED: Bupivacaine 0.25% HCL 30 ML VIAL ONE (12:35)
[2021-11-21] MEDS ORDERED: CEFAZOLIN 2 GM VIAL ONE (12:55)
[2021-11-21] MEDS ORDERED: Sodium Chloride 0.9% 100 ML ONE (12:55)
[2021-11-21] MEDS ORDERED: Ondansetron PF 4 MG/2 ML Vial ONE (13:13)
[2021-11-21] MEDS ORDERED: Dexamethasone 20 MG/5 ML VIAL ONE (13:13)
[2021-11-21] MEDS ORDERED: Lidocaine 1% PF 5 ML VIAL ONE (13:13)
[2021-11-21] MEDS ORDERED: ePHEDrine 50 MG/ML VIAL ONE (13:13)
[2021-11-21] MEDS ORDERED: PROPOFOL 200 MG/20 ML VIAL ONE (13:13)
[2021-11-21] MEDS ORDERED: Fentanyl 100 MCG/2 ML VIAL ONE (14:31)
[2021-11-21] MEDS ORDERED: traMADol HCl 50 MG TAB ONE (15:34)
== END 2021-11-21 16:15 | disposition home or self-care (01) ==
LOC: SDC 11:04
PROVIDERS: ATTEND Specialist
PROC: 0J960ZZ Drainage of Chest Subcutaneous Tissue and Fascia, Open Approach (ICD-10-PCS; principal; 2021-11-21)
DX: N64.89 Other specified disorders of breast (principal); E78.5 Hyperlipidemia, unspecified; I10 Essential (primary) hypertension; J45.909 Unspecified asthma, uncomplicated; G47.30 Sleep apnea, unspecified; K21.9 Gastro-esophageal reflux disease without esophagitis; Z88.0 Allergy status to penicillin; Z88.1 Allergy status to other antibiotic agents; Z88.5 Allergy status to narcotic agent; Z79.890 Hormone replacement therapy; Z79.899 Other long term (current) drug therapy
CPT/HCPCS: 80048; 85025; J1100; J1885; J2405; J2550; J2704; J3010; J3490; S0020

== ENCOUNTER 2021-12-19 13:06 | Outpatient (CLI) | payer BC | END 2021-12-19 13:07 | disposition home or self-care (01) | LOC: LABBT 13:06 | PROVIDERS: ATTEND Internal Medicine | DX: Z20.822 Contact with and (suspected) exposure to COVID-19 (principal) | CPT/HCPCS: 87811 ==

== ENCOUNTER 2021-12-24 07:14 | Day surgery (SDC) | payer BC, MEDICARE ==
[2021-11-05 15:00] VITALS: BMI 22.6
[2021-12-24] MEDS ORDERED: Lidocaine 1% PF 5 ML VIAL ONE (08:31)
[2021-12-24] MEDS ORDERED: PROPOFOL 200 MG/20 ML VIAL ONE (08:31)
== END 2021-12-24 10:50 | disposition home or self-care (01) ==
LOC: SDC 07:14
PROVIDERS: ATTEND Internal Medicine
PROC: 0DBM8ZX Excision of Descending Colon, Via Natural or Artificial Opening Endoscopic, Diagnostic (ICD-10-PCS; principal; 2021-12-24)
DX: Z12.11 Encounter for screening for malignant neoplasm of colon (principal); K51.40 Inflammatory polyps of colon without complications; Z86.010 Personal history of colon polyps; Z79.890 Hormone replacement therapy; Z79.899 Other long term (current) drug therapy; Z80.0 Family history of malignant neoplasm of digestive organs; Z88.0 Allergy status to penicillin; Z88.1 Allergy status to other antibiotic agents; Z88.5 Allergy status to narcotic agent
CPT/HCPCS: 88305; J2704

== ENCOUNTER 2022-05-20 11:37 | Emergency (ER) | payer MEDICARE, BC ==
[2022-05-20 11:57] LABS: #Lymphocytes 1.5 thou/uL (1.20-3.40); #Monocytes 0.6 thou/uL (0.11-0.59); #Neutrophils 6.1 thou/uL (1.40-6.50); %Basophils 0.4 % (0.0-1.0); %Eosinophils 0.1 % (0.0-10.0); %Lymphocytes 18.5 % (21.0-51.0); %Monocytes 7.5 % (0.0-10.0); %Neutrophils 73.5 % (42.0-75.0); Hemoglobin 16.7 g/dL (12.0-16.0); Mean Corpuscular HGB CONC 31.9 g/dL (32.0-36.0); Mean Corpuscular Hemoglobin 28.6 pg (27.0-31.0); Mean Corpuscular Volume 89.6 fl (78.0-98.0); Mean Platelet Volume 9.8 fL (7.4-10.4); Platelet Count 168 10x3/uL (130-400); RBC Distribution Width 12.1 % (11.5-14.5); Red Blood Cell (RBC) Count 5.86 mill/uL (4.20-5.40); White Blood Cell (WBC) Count 8.3 10x3/uL (4.8-10.8)
[2022-05-20 12:25] LABS: ALT (SGPT) 17 U/L (8-55); AST (SGOT) 19 U/L (5-34); Albumin 4.6 g/dL (3.4-4.8); Alkaline Phosphatase 86 U/L (40-110); Anion Gap 11 mmol/L (10-20); BUN (Urea Nitrogen) 15 mg/dL (9.8-20.1); Bilirubin, Total 0.6 mg/dL (0.2-1.2); Calc. Creatinine Clearance 0 mL/min (70-130); Calcium 9.9 mg/dL (7.8-10.44); Carbon Dioxide 28 mmol/L (23-31); Chloride 107 mmol/L (98-107); Estimated GFR 83; Glucose 98 mg/dL (80-115); Potassium 4.8 mmol/L (3.5-5.1); Protein, Total 7.6 g/dL (5.8-8.1)
[2022-05-20 12:33] LABS: Sodium 141 mmol/L (136-145)
== END 2022-05-20 17:03 | disposition home or self-care (01) ==
LOC: ERS 11:37
DX: I10 Essential (primary) hypertension (principal); E03.9 Hypothyroidism, unspecified
CPT/HCPCS: 71045; 80053; 84484; 85025; 93005; 99284; G0463; 36415; 99213

== ENCOUNTER 2023-07-29 11:02 | Outpatient (CLI) | payer OTHER | END 2023-07-29 11:03 | disposition home or self-care (01) | LOC: DTY/OP 11:02 | PROVIDERS: ATTEND Family Medicine | DX: E16.2 Hypoglycemia, unspecified (principal) | CPT/HCPCS: 97802 ==

== ENCOUNTER 2023-10-24 08:47 | Outpatient (CLI) | payer MEDICARE | END 2023-10-24 08:48 | disposition home or self-care (01) | LOC: BICMAMMO 08:47 | PROVIDERS: ATTEND Family Medicine | DX: Z12.31 Encounter for screening mammogram for malignant neoplasm of breast (principal); Z85.828 Personal history of other malignant neoplasm of skin; Z91.89 Other specified personal risk factors, not elsewhere classified | CPT/HCPCS: 77063; 77067 ==

== ENCOUNTER 2023-12-19 09:05 | Outpatient (CLI) | payer MEDICARE | END 2023-12-19 09:06 | disposition home or self-care (01) | LOC: BICMAMMO 09:05 | PROVIDERS: ATTEND Family Medicine | DX: M85.89 Other specified disorders of bone density and structure, multiple sites (principal) | CPT/HCPCS: 77080 ==

== ENCOUNTER 2025-03-10 07:52 | Outpatient (CLI) | payer MEDICARE ==
[2025-03-10] MEDS ORDERED: E-Z-HD 98% W/W 340GM BOT (x-ray ONLY) ONE (07:59)
[2025-03-10] MEDS ORDERED: Barium Sulfate 96% 176 GM BOT (xray ONLY) ONE (07:59)
== END 2025-03-10 07:53 | disposition home or self-care (01) ==
LOC: RAD 07:52
PROVIDERS: ATTEND Family Medicine
DX: R13.12 Dysphagia, oropharyngeal phase (principal); M47.812 Spondylosis without myelopathy or radiculopathy, cervical region
CPT/HCPCS: 74246